=== PATIENT | female | born 1980 | race Caucasian/White ===

== ENCOUNTER → 2017-06-12 | Outpatient (CLI) | payer OTHER | LOC: BMCIMAGING 11:25 | PROVIDERS: ATTEND Physician Assistant | DX: M79.672 Pain in left foot (principal); M20.12 Hallux valgus (acquired), left foot ==

== ENCOUNTER → 2018-06-27 | Outpatient (CLI) | payer OTHER | LOC: FIMAGING 15:22 | PROVIDERS: ATTEND Registered Nurse | DX: S62.634A Displaced fracture of distal phalanx of right ring finger, initial encounter for closed fracture (principal) ==